=== PATIENT | female | born 1985 | race American Indian/Alaskan Native ===

== ENCOUNTER 2017-01-27 19:46 | Emergency (ER) | payer SELFPAY ==
[2017-01-27 20:15] VITALS: BP 115/59
[2017-01-27 20:42] LABS: Bacteria,Urine 1+ /HPF (Negative); Bilirubin,Urine NEG (Negative); Blood,Urine LG (Negative); Ketones,Urine NEG (Negative); Leukocyte Esterase,Urine NEG (Negative); Mucus,Urine FEW /HPF; Nitrite,Urine NEG (Negative); Urobilinogen,Urine < 2.0 mg/dL (<2.0)
== END 2017-01-27 21:20 | disposition left against medical advice (07) ==
LOC: ED 19:46
DX: Z53.21 Procedure and treatment not carried out due to patient leaving prior to being seen by health care provider (principal)
CPT/HCPCS: 81001; 81025

== ENCOUNTER 2017-01-29 05:08 | Emergency (ER) | payer SELFPAY ==
[2017-01-29 05:36] VITALS: BP 107/58
== END 2017-01-29 06:36 | disposition left against medical advice (07) ==
LOC: ED 05:08
DX: N76.4 Abscess of vulva (principal); Z88.0 Allergy status to penicillin; Z53.21 Procedure and treatment not carried out due to patient leaving prior to being seen by health care provider